=== PATIENT | female | born 1970 | race Caucasian/White ===

== ENCOUNTER → 2016-10-09 | Outpatient (CLI) | payer BC ==
[2016-10-09 14:41] LABS: BUN 12 mg/dL (7-18)
[2016-10-09 14:42] LABS: GFR (ESTIMATED) 68 ML/MIN (59-)
== END ==
LOC: CARL-LAB 11:30
PROVIDERS: Physician Assistant
DX: I10 Essential (primary) hypertension (principal); E78.5 Hyperlipidemia, unspecified; N28.9 Disorder of kidney and ureter, unspecified